=== PATIENT | female | born 1940 | race Caucasian/White ===

== ENCOUNTER 2017-09-01 11:28 | Emergency (ER) | payer MEDICARE ==
[~2017-09-01] VITALS: Ht 172.7 cm; Wt 54.5 kg
[~2017-09-01 11:28] MED LIST: ACTO35TA PO; AMLO5TAB96 PO; COUM5TAB PO; FEXO180 PO; GEMF600 PO; HYDR12.56 PO; LORT5TAB PO; METO100T PO; NIAC100T3 PO; OYST500T77 PO; PRAM.25 PO; PRIL20TA2 PO; REST15CA PO; TAB-TAB PO; WARF2.5 PO; ZOCO80TA PO
[2017-09-01 11:29] VITALS: BP 148/73; PULSE 97; RESP 20; TEMP 98.7; O2SAT 94
--- NOTE | 2017-09-01 12:15 | RADRPT ---
EXAM DATE/TIME: 09/01/2017 12:03 [facility] COMPARISON: No previous studies available for comparison. INDICATIONS : Fell yesterday, pain with limited motion. MEDICAL HISTORY : None. SURGICAL HISTORY : None. ENCOUNTER: Initial ACUITY: 2 days PAIN SCORE: 10/10 LOCATION: Right shoulder. FINDINGS: Fracture of the right humeral head surgical neck. The acromion and glenoid are intact. Lung apex is clear. CONCLUSION: Humeral fracture as above. Rubin Jasmine MD FACR on September 01, 2017 at 12:09 Board Certified Radiologist. This report was verified electronically.
--- NOTE | 2017-09-01 13:03 | RADRPT ---
EXAM DATE/TIME: 09/01/2017 12:38 [facility] COMPARISON: No previous studies available for comparison. INDICATIONS : Fall yesterday, cephalgia. RADIATION DOSE: 56.35 CTDIvol (mGy) MEDICAL HISTORY : Cardiovascular disease. Hypertension. SURGICAL HISTORY : Hysterectomy. ENCOUNTER: Initial ACUITY: 1 day PAIN SCALE: 2/10 LOCATION: Bilateral cranial TECHNIQUE: Multiple contiguous axial images were obtained of the head. Using automated exposure control and adj ustment of the mA and/or kV according to patient size, radiation dose was kept as low as reasonably a chievable to obtain optimal diagnostic quality images. DICOM format image data is available electro nically for review and comparison. FINDINGS: There is a remote left middle cerebral artery distribution infarct. Moderate to severe white matter i schemic changes. No acute hemorrhage, mass effect or shift. No hydrocephalus. Cortical volume loss. I ncidental basal ganglia calcifications. CONCLUSION: 1. Remote left MCA infarct. No acute findings. Lei Sanches MD on September 01, 2017 at 13:00 Board Certified Radiologist. This report was verified electronically.
--- NOTE | 2017-09-01 13:29 | PD ---
HPI Chief Complaint: Musculoskeletal Complaint Time Seen by Provider: 13:21 Travel History International Travel<30 days: No Contact w/Intl Traveler<30days: No Traveled to known affect area: No History of Present Illness HPI 76-year-old right-hand dominant female with PMH of HTN, A. fib ON COUMADIN presents to the ED for evaluation of 10/10 right shoulder pain. Onset after a slip and fall onto the concrete at approximately 8:30 PM last night. This was unwitnessed. She endorses hitting her head. She denies loss of consciousness. She denies headache, nausea, dizziness. She endorses limitations to range of motion of the arm secondary to pain but states that she has moved it. She denies numbness, tingling, weakness of the extremity. She never injured that area before. Last meal approximately 8 PM last night. She was seen a quick care, given 10 mg Percocet and told to come to the ED. PFSH Past Medical History Cancer: No Diabetes: No Glaucoma: No Hepatitis: No Hiatal Hernia: Yes Hypertension: Yes Thyroid Disease: No Past Surgical History Abdominal Surgery: Yes (RIGHT INGUINAL HERNIA REPAIR) Eye Surgery: Yes (BILAT CATARACT EXT) Gynecologic Surgery: Yes (HYSTERECTOMY) Pacemaker: No Social History Alcohol Use: Yes (1 OR 2 DAILY) Tobacco Use: Yes (1 PK DAILY) Allergies-Medications (Allergen,Severity, Reaction): Coded Allergies: No Known Allergies (Verified Adverse Reaction, Unknown, 09/01/17) Reported Meds & Prescriptions Reported Meds & Active Scripts Active Tramadol (Tramadol HCl) 50 Mg Tab 50 Mg PO Q8H PRN Reported Norvasc (Amlodipine Besylate) 5 Mg Tab 5 Mg PO BID Hydrochlorothiazide (Miscellaneous Medication) 12.5 Mg Cap 12.5 Mg PO DAILY Metoprolol Tartrate 100 mg (Metoprolol Tartrate) 100 Mg Tab 100 Mg PO BID Lortab 5/500 (Acetaminophen/Hydrocodone Bitart) 5 Mg/500 Mg Tab 1 Tab PO Q6HPRN FOR PAIN Restoril (Temazepam) 15 Mg Cap 15 Mg PO HSPRN FOR INSOMNIA Actonel 35 mg (Risedronate) 35 Mg Tab 35 Mg PO WEEKLY Zocor 80 mg (Simvastatin) 80 Mg Tab 80 Mg PO HS Coumadin (Warfarin Sodium) 2.5 Mg Tab 2.5 Mg PO TUES,THURS Coumadin 5 mg (Warfarin Sodium) 5 Mg Tab 5 Mg PO MON,WED,FRI,SAT,SUN Gloria (Fexofenadine HCl) 180 Mg Tab 180 Mg PO DAILY Mirapex (Pramipexole Dihydrochloride) 0.25 Mg Tab 0.25 Mg PO HS Prilosec Otc (Omeprazole Magnesium) 20 Mg Tab 20 Mg PO DAILY Lopid (Gemfibrozil) 600 Mg Tab 600 Mg PO BID Niacin 100 Mg Tab 250 Mg PO DAILY Multivitamin (Multivitamins) 1 Tab Tab 1 Tab PO DAILY Calcium 500 Mg Tab 500 Mg PO BID Review of Systems Except as stated in HPI: all other systems reviewed are Neg Physical Exam Narrative GENERAL: Well-nourished, well-developed frail white female in no acute distress. SKIN: Focused skin assessment warm/dry. HEAD: Normocephalic. EYES: No scleral icterus. No injection or drainage. NECK: Supple, trachea midline. No JVD or lymphadenopathy. No midline tenderness to palpation. No limitation to our OM. CARDIOVASCULAR: Regular rate and rhythm without murmurs, gallops, or rubs. RESPIRATORY: Breath sounds clear and equal bilaterally. No accessory muscle use. GASTROINTESTINAL: Abdomen soft, non-tender, nondistended. Active bowel sounds. MUSCULOSKELETAL: No cyanosis, or edema. FOCUSED RIGHT UPPER EXTREMITY EXAM: 2+ radial pulse. Thorough palpation of the shoulder and proximal humerus. Strong adapted physical education specialist strength. Sensation intact to light touch distally. Range of motion testing deferred secondary to pain. NEUROLOGICAL: Awake and alert. Cranial nerves II through XII intact. Motor and sensory grossly within normal limits. Five out of 5 muscle strength in all muscle groups. Normal speech. BACK: Nontender without obvious deformity. No CVA tenderness. Data Data Last Documented VS Vital Signs Date Time Temp Pulse Resp B/P (MAP) Pulse Ox O2 Delivery O2 Flow Rate FiO2 09/01/17 11:29 98.7 97 20 148/73 (98) 94 Room Air Orders Orders Ct Brain W/O Iv Contrast(Rout) (09/01/17 ) Shoulder, Limited(2vws) (09/01/17 ) Sling And Swathe (09/01/17 ) Sling And Swathe (09/01/17 ) NPO (09/01/17 13:21) Ed Discharge Order (09/01/17 15:33) [facility] Medical Decision Making Medical Screen Exam Complete: Yes Emergency Medical Condition: Yes Differential Diagnosis Fall from standing, contusion, ICH, fracture, dislocation , other Narrative Course 76-year-old female with PMH of Enrico moreno, on Coumadin presents to the ED for evaluation of 10/10 right shoulder pain. Onset at 8:30 last night after falling at home. She was seen on an outpatient basis and sent to the ED. She was given 2 Percocet at that time. Vitals reviewed. Physical exam concerning for proximal humerus fracture. Otherwise unremarkable. X-ray reveals fracture of the surgical neck. CT ordered in triage negative for intracranial pathology. I spoke with Dr. Castañeda who recommended sling and swath and outpatient follow-up. I discussed this plan of care with the patient who is agreeable. Sling and swath was applied. Patient was prescribed a short course of tramadol. She was given detailed instructions on follow-up. She indicated understanding of the instructions. Her son arrived to bring her home and he also indicated understanding of instructions. The patient is stable and discharged home. Diagnosis Primary Impression: Closed right humeral fracture Qualified Codes: S42.224A - 2-part nondisplaced fracture of surgical neck of right humerus, initial encounter for closed fracture Referrals: Mau Zavala MD Patient Instructions: Arm Fracture in Adults (ED), General Instructions Additional Instructions: Rest, ice, the extremity. Apply ice no longer than 10-15 minutes per hour a few times a day. Tramadol as prescribed, as needed for pain. Do not remove the sling until cleared by the orthopedist. Follow-up with Dr. Castañeda's office tomorrow for an appointment. Return to the ED for any urgent or emergent medical condition. Med/Other Pt SpecificInfo: Prescription(s) given Scripts Tramadol (Tramadol) 50 Mg Tab 50 MG PO Q8H Y for PAIN, #12 TAB 0 Refills Prov: Shelby Rankin MD 09/01/17 Disposition: 01 DISCHARGE HOME Condition: Stable Coco Zamora Sep 01, 2017 13:29
[2017-09-01] MEDS ORDERED: TRAM50TA PO (15:51)
[2017-09-02] MEDS ORDERED: DILT0.05 PO (10:36)
[2017-09-02] MEDS ORDERED: ATOR20TA15 PO (10:36)
[2017-09-02] MEDS ORDERED: WARF-58 PO (10:36)
[2017-09-02] MEDS ORDERED: WARF-20 PO (10:36)
[2017-09-02] MEDS ORDERED: ALEN35TA24 PO (10:36)
[2017-09-02] MEDS ORDERED: DONE5TAB7 PO (10:36)
[2017-09-02] MEDS ORDERED: METO25TA3 PO (10:38)
== END 2017-09-01 16:58 | disposition home or self-care (01) ==
LOC: NEPK 11:28
DX: S42.214A Unspecified nondisplaced fracture of surgical neck of right humerus, initial encounter for closed fracture (principal); I10 Essential (primary) hypertension; I48.91 Unspecified atrial fibrillation; W01.0XXA Fall on same level from slipping, tripping and stumbling without subsequent striking against object, initial encounter; Z72.89 Other problems related to lifestyle; Z79.01 Long term (current) use of anticoagulants
CPT/HCPCS: 70450; 73030; 99284

== ENCOUNTER 2017-09-01 18:34 | Observation (INO) | payer MEDICARE ==
[2017-09-01] VITALS (7 sets, daily range): BP systolic 124–148; BP diastolic 60–93; PULSE 75–84; RESP 18–20; TEMP 98–98.4; O2SAT 92–97
[~2017-09-01] VITALS: Ht 175.3 cm; Wt 50.0 kg
[~2017-09-01 18:34] MED LIST changes: +TRAM50TA PO
--- NOTE | 2017-09-01 18:52 | PD ---
HPI Chief Complaint: Fall Time Seen by Provider: 18:52 Travel History International Travel<30 days: No Contact w/Intl Traveler<30days: No Traveled to known affect area: No History of Present Illness HPI 76-year-old female seen previously today and discharged home status post fall last evening at 8:30 PM. Patient was diagnosed with a right humeral fracture. She was sent home with arm sling and tramadol for pain. Patient had recurrent unwitnessed fall at home where she lives with her and son. She is brought back via EMS. Patient complains of pain to the right shoulder only. She denies hitting her head or loss of consciousness. He denies pain in any other part. Pain is currently 8 out of 10. She has no known drug allergies. PFSH Past Medical History Hx Anticoagulant Therapy: Yes Cancer: No Cardiovascular Problems: Yes Diabetes: No Glaucoma: No Hepatitis: No Hiatal Hernia: Yes Hypertension: Yes Thyroid Disease: No Tetanus Vaccination: Unknown Influenza Vaccination: Yes Past Surgical History Abdominal Surgery: Yes (RIGHT INGUINAL HERNIA REPAIR) Eye Surgery: Yes (BILAT CATARACT EXT) Gynecologic Surgery: Yes (HYSTERECTOMY) Pacemaker: No Other Surgery: Yes Social History Alcohol Use: Yes (1 OR 2 DAILY) Tobacco Use: Yes (1 PK DAILY) Substance Use: No Allergies-Medications (Allergen,Severity, Reaction): Coded Allergies: No Known Allergies (Verified Adverse Reaction, Unknown, 09/01/17) Reported Meds & Prescriptions Reported Meds & Active Scripts Active Tramadol (Tramadol HCl) 50 Mg Tab 50 Mg PO Q8H PRN Review of Systems Except as stated in HPI: all other systems reviewed are Neg General / Constitutional: No: Fever Eyes: No: Visual changes HENT: No: Headaches Cardiovascular: No: Chest Pain or Discomfort Respiratory: No: Shortness of Breath Gastrointestinal: No: Abdominal Pain Genitourinary: No: Dysuria Musculoskeletal: Positive: Arthralgias, Limited ROM, Pain, No: Myalgias Skin: No Rash Neurologic: No: Weakness Psychiatric: No: Depression Endocrine: No: Polydipsia Hematologic/Lymphatic: No: Easy Bruising Physical Exam Narrative GENERAL: Patient appears in [id number] distress. SKIN: Warm and dry. Normal color. Normal turgor. Patient has multiple superficial abrasions and old ecchymotic areas. HEAD: Atraumatic. Normocephalic. Nontender with palpation. EYES: Pupils equal and round. No scleral icterus. No injection or drainage. ENT: No nasal bleeding or discharge. Mucous membranes pink and moist. No dental injury. Pharynx is clear. Airway is patent. NECK: Trachea midline. No bony tenderness or step-off. Range of motion is full. CARDIOVASCULAR: Regular rate and rhythm. No murmurs appreciated. RESPIRATORY: No accessory muscle use. Clear to auscultation. Breath sounds equal bilaterally. GASTROINTESTINAL: Abdomen soft, non-tender, nondistended. Hepatic and splenic margins not palpable. MUSCULOSKELETAL: Extremities without clubbing, cyanosis, or edema. She has obvious swelling and tenderness over the right shoulder. NEUROLOGICAL: Awake and alert. No obvious cranial nerve deficits. Motor grossly within normal limits. Five out of 5 muscle strength in the arms and legs. Normal speech. PSYCHIATRIC: Appropriate mood and affect; insight and judgment normal. Data Data Last Documented VS Vital Signs Date Time Temp Pulse Resp B/P (MAP) Pulse Ox O2 Delivery O2 Flow Rate FiO2 09/01/17 19:20 82 18 124/60 (81) 95 Nasal Cannula 2.00 09/01/17 18:48 98.4 Orders Orders Iv Access Insert/Monitor (09/01/17 19:02) Ecg Monitoring (09/01/17 19:02) Oximetry (09/01/17 19:02) Sodium Chloride 0.9% Flush (Ns Flush) (09/01/17 19:15) Morphine Inj (Morphine Inj) (09/01/17 19:15) Admit Order (Ed Use Only) (09/01/17 20:30) [facility] Medical Decision Making Medical Screen Exam Complete: Yes Emergency Medical Condition: Yes Medical Record Reviewed: Yes Differential Diagnosis Unwitnessed fall. Right shoulder fracture. Fall risk. Unsafe for home discharge Narrative Course Patient appears medically stable at time of exam. IV is placed, and patient is given 2 mg IV morphine. Patient is seen and discussed with Dr. Almendarez. Patient is felt to warrant overnight observation and physical therapy evaluation. Call was placed to the hospitalist for admission. Diagnosis Primary Impression: Shoulder fracture, right Qualified Codes: S42.91XD - Fracture of right shoulder girdle, part unspecified, subsequent encounter for fracture with routine healing Additional Impressions: Recurrent falls while walking Anticoagulated on Coumadin Admitting Information Admitting Physician Requests: Observation Condition: Stable Vinny Brown Sep 01, 2017 18:52
[2017-09-01] MEDS ORDERED: SODIUM CHLORIDE 0.9% FLUSH 10 ML FLUSH IV FLUSH PRN (19:15)
[2017-09-01] MEDS ORDERED: MORPHINE SULFATE 2 MG/ML INJ IV PUSH ONE (19:15)
--- NOTE | 2017-09-01 20:44 | HHI.HP ---
HPI Service [facility] Hospitalists Primary Care Physician Unknown Admission Diagnosis right humerus fracture/recurrent falls/fall risk/on Coumadin Chief Complaint: falls Travel History International Travel<30 Days: No Contact w/Intl Traveler <30 Da: No Traveled to Known Affected Are: No History of Present Illness Pt is 76 yo with afib/coumadin, dementia, htn who fell out of bed this morning. Pt was taken to pcp and had given her some percocet. noted to have right humerus head fx. Pt then brought to ED and placed in sling and order to f/u Ortho..ultram writted. Pt went home and reportedly had another fall and brought here by EMS. Unable to reach family. Pt unclear about the second fall and ED requested observation. Pt denies headache. Review of Systems Other falls right arm fx Past Family Social History Past Medical History afib depression pvd sz d/o gerd diverticulosis colon polyps hx cva hx dvt dementia spinal stenosis/neurogenic claudication per records htn RLS hx cataract surgery hysterectomy hernia repair Reported Medications coumadin mirtazepine 15mg qhs metoprolol 25mg po bid aricept 5mg bid cardizem 180mg daily atorvastatin 20mg daily alendronate 3 daily but 4mg on weekend Allergies: Coded Allergies: No Known Allergies (Verified Adverse Reaction, Unknown, 09/01/17) Family History nc Social History no etoh/1ppd tob Physical Exam Vital Signs nad cooperative heart reg lung cta abd s/nt ext no edema right arm sling/ecchymosis Vital Signs Date Time Temp Pulse Resp B/P (MAP) Pulse Ox O2 Delivery O2 Flow Rate FiO2 09/01/17 19:20 82 18 124/60 (81) 95 Nasal Cannula 2.00 09/01/17 19:19 95 Room Air 09/01/17 18:48 84 19 95 Room Air 09/01/17 18:48 98.4 84 19 133/61 (85) 95 Room Air 09/01/17 18:43 98.4 84 19 133/61 (85) 95 Caprini VTE Risk Assessment Caprini VTE Risk Assessment: Mod/High Risk (score >= 2) Caprini Risk Assessment Model Point Value = 1 Point Value = 2 Point Value = 3 Point Value = 5 Age 41-60 Minor surgery BMI > 25 kg/m2 Swollen legs Varicose veins or History of unexplained or recurrent spontaneous Oral contraceptives or hormone replacement Sepsis (< 1 month) Serious lung disease, including pneumonia (< 1 month) Abnormal pulmonary function Acute myocardial infarction Congestive heart failure (< 1 month) History of inflammatory bowel disease Medical patient at bed rest Age 61-74 Arthroscopic surgery Major open surgery (> 45 min) Laparoscopic surgery (> 45 min) Malignancy Confined to bed (> 72 hours) Immobilizing plaster cast Central venous access Age >= 75 History of VTE Family history of VTE Factor V Leiden Prothrombin [id number] Lupus anticoagulant Anticardiolipin antibodies Elevated serum homocysteine Heparin-induced thrombocytopenia Other congenital or acquired thrombophilia Stroke (< 1 month) Elective arthroplasty Hip, pelvis, or leg fracture Acute spinal cord injury (< 1 month) Prophylaxis Regimen Total Risk Factor Score Risk Level Prophylaxis Regimen 0-1 Low Early ambulation 2 Moderate Order ONE of the following: *Sequential Compression Device (SCD) *Heparin 5000 units SQ BID 3-4 Higher Order ONE of the following medications: *Heparin 5000 units SQ TID *Enoxaparin/Lovenox 40 mg SQ daily (WT < 150 kg, CrCl > 30 mL/min) *Enoxaparin/Lovenox 30 mg SQ daily (WT < 150 kg, CrCl > 10-29 mL/min) *Enoxaparin/Lovenox 30 mg SQ BID (WT < 150 kg, CrCl > 30 mL/min) AND/OR *Sequential Compression Device (SCD) 5 or more Highest Order ONE of the following medications: *Heparin 5000 units SQ TID (Preferred with Epidurals) *Enoxaparin/Lovenox 40 mg SQ daily (WT < 150 kg, CrCl > 30 mL/min) *Enoxaparin/Lovenox 30 mg SQ daily (WT < 150 kg, CrCl > 10-29 mL/min) *Enoxaparin/Lovenox 30 mg SQ BID (WT < 150 kg, CrCl > 30 mL/min) AND *Sequential Compression Device (SCD) Assessment and Plan Problem List: (1) Shoulder fracture, right ICD Codes: S42.91XA - Fracture of right shoulder girdle, part unspecified, initial encounter for closed fracture Status: Acute Plan: 1. Fall x 2 today. unclear mechanism. poor historian. dementia. no family present 2. right humerus fracture evaluated in ED this AM and sent home with ortho f/u 3. afib on anticoagulation. inr on 08/30 2.7 per office records 4. htn 5. dementia observation PT evaluation cbc/bmp/inr pending pain control try to contact family decide on home vs snf tomorrow. I found a list of medications in [facility] pharmacy record. (2) Recurrent falls ICD Codes: R29.6 - Repeated falls Status: Acute (3) Dementia ICD Codes: F03.90 - Unspecified dementia without behavioral disturbance Status: Chronic (4) HTN (hypertension) ICD Codes: I10 - Essential (primary) hypertension Status: Chronic (5) Atrial fibrillation ICD Codes: I48.91 - Unspecified atrial fibrillation Status: Chronic Problem Qualifiers (1) Shoulder fracture, right: Qualified Codes: S42.91XD - Fracture of right shoulder girdle, part unspecified , subsequent encounter for fracture with routine healing Tello Bills MD Sep 01, 2017 20:44
[2017-09-01 21:10] LABS: AUTOMATED NEUTROPHIL # 10.1 TH/MM3 (1.8-7.7); BASOPHIL # 0.1 TH/MM3 (0-0.2); BASOPHIL % 0.5 % (0.0-2.0); EOSINOPHIL % 0.2 % (0.0-4.0); HEMATOCRIT 40.9 % (35.0-46.0); HEMOGLOBIN 13.9 GM/DL (11.6-15.3); LYMPH % 8.4 % (9.0-44.0); MEAN CELL VOLUME 90.9 FL (80.0-100.0); MEAN CORPUSCULAR HEMOGLOBIN 30.8 PG (27.0-34.0); MEAN CORPUSCULAR HGB CONC 33.9 % (32.0-36.0); MEAN PLATELET VOLUME 8.8 FL (7.0-11.0); MONO % 6.9 % (0.0-8.0); MONOCYTE # 0.8 TH/MM3 (0-0.9); PLATELET COUNT 236 TH/MM3 (150-450); RED CELL DISTRIBUTION WIDTH 13.5 % (11.6-17.2); WHITE BLOOD COUNT 12.1 TH/MM3 (4.0-11.0)
[2017-09-01 21:30] LABS: BICARBONATE 24.1 MEQ/L (21.0-32.0); CALCIUM 8.6 MG/DL (8.5-10.1); CREATININE 0.87 MG/DL (0.50-1.00)
[2017-09-01 21:31] LABS: TROPONIN I 0.04 NG/ML (0.02-0.05)
[2017-09-01 21:38] LABS: INTERNATIONAL NORMALIZED RATIO 3.1 RATIO; PROTHROMBIN TIME - PATIENT 31.1 SEC (9.8-11.6)
[2017-09-01] MEDS ORDERED: traMADol HCL 50 MG TAB PO PRN (22:00)
[2017-09-02 00:42] VITALS: PULSE 72
[2017-09-02 03:15] VITALS: BP 145/65; PULSE 75; RESP 18; TEMP 98.1; O2SAT 94
[2017-09-02 04:37] VITALS: PULSE 71
[2017-09-02] MEDS ORDERED: METOPROLOL TARTRATE 25 MG TAB PO SCH (09:00)
[2017-09-02] MEDS ORDERED: DILTIAZEM-CD 180 MG CAP ER PO SCH (09:00)
[2017-09-02] MEDS ORDERED: DONEPEZIL HCL 5 MG TAB PO SCH (09:00)
[2017-09-02 09:11] VITALS: BP 153/68; PULSE 78; RESP 15; TEMP 97.1; O2SAT 93
[2017-09-02] MEDS ORDERED: ATOR20TA15 PO (10:36)
[2017-09-02] MEDS ORDERED: DONE5TAB7 PO (10:36)
[2017-09-02] MEDS ORDERED: WARF-58 PO (10:36)
[2017-09-02] MEDS ORDERED: DILT0.05 PO (10:36)
[2017-09-02] MEDS ORDERED: ALEN35TA24 PO (10:36)
[2017-09-02] MEDS ORDERED: WARF-20 PO (10:36)
[2017-09-02] MEDS ORDERED: METO25TA3 PO (10:38)
--- NOTE | 2017-09-02 10:43 | HHI.PR ---
Subjective Remarks Pt is awake and pleasantly confused Nurse reports that PT saw the pt this morning and recommended home with HHC/PT ans felt that the pt was stable to use a cane Pt reportedly lives at home with her and son I was unable to reach any family members this morning by phone and no family is present at bedside Pt reports that her pain is well controlled Objective Vitals Vital Signs Date Time Temp Pulse Resp B/P (MAP) Pulse Ox O2 Delivery O2 Flow Rate FiO2 09/02/17 09:11 97.1 78 15 153/68 (96) 93 09/02/17 04:37 71 09/02/17 03:15 98.1 75 18 145/65 (91) 94 09/02/17 00:42 72 09/01/17 23:29 98.0 75 18 145/93 (110) 92 09/01/17 21:50 98.0 76 18 148/65 (92) 93 09/01/17 20:57 76 20 147/68 (94) 97 Nasal Cannula 2.00 09/01/17 19:20 82 18 124/60 (81) 95 Nasal Cannula 2.00 09/01/17 19:19 95 Room Air 09/01/17 18:48 84 19 95 Room Air 09/01/17 18:48 98.4 84 19 133/61 (85) 95 Room Air 09/01/17 18:43 98.4 84 19 133/61 (85) 95 Result Diagram: 09/01/17203609/01/172036 Other Results Laboratory Tests Test 09/01/17 20:37 White Blood Count 12.1 TH/MM3 Red Blood Count 4.50 MIL/MM3 Hemoglobin 13.9 GM/DL Hematocrit 40.9 % Mean Corpuscular Volume 90.9 FL Mean Corpuscular Hemoglobin 30.8 PG Mean Corpuscular Hemoglobin Concent 33.9 % Red Cell Distribution Width 13.5 % Platelet Count 236 TH/MM3 Mean Platelet Volume 8.8 FL Neutrophils (%) (Auto) 84.0 % Lymphocytes (%) (Auto) 8.4 % Monocytes (%) (Auto) 6.9 % Eosinophils (%) (Auto) 0.2 % Basophils (%) (Auto) 0.5 % Neutrophils # (Auto) 10.1 TH/MM3 Lymphocytes # (Auto) 1.0 TH/MM3 Monocytes # (Auto) 0.8 TH/MM3 Eosinophils # (Auto) 0.0 TH/MM3 Basophils # (Auto) 0.1 TH/MM3 CBC Comment DIFF FINAL Differential Comment Prothrombin Time 31.1 SEC Prothromb Time International Ratio 3.1 RATIO Blood Urea Nitrogen 23 MG/DL Creatinine 0.87 MG/DL Random Glucose 111 MG/DL Calcium Level 8.6 MG/DL Sodium Level 135 MEQ/L Potassium Level 4.2 MEQ/L Chloride Level 103 MEQ/L Carbon Dioxide Level 24.1 MEQ/L Anion Gap 8 MEQ/L Estimat Glomerular Filtration Rate 63 ML/MIN Troponin I 0.04 NG/ML Objective Remarks General: Awake, alert, pleasantly confused Chest: CTA Cardiac: Regular Abdomen: +BS, soft ND/NT Ext: RUE in sling A/P Problem List: (1) Shoulder fracture, right ICD Codes: S42.91XA - Fracture of right shoulder girdle, part unspecified, initial encounter for closed fracture Status: Acute Plan: Falls at home Right humerus fracture - Pt is a 76 y/o WF with HTN, A. fib and dementia - She was brought into the ED twice on 09/01/16 both times after falls at home. - With her first evaluation in the ED she was found to have sustained a right humerus fracture and was placed in a sling and sent home to fu with ortho - Pt reportedly fell again yesterday evening and was brought back into the ED. The mechanism of her fall is unclear - PT evaluated the pt this morning and felt to the stable to go home with HHC /PT but unable to contact pts family by phone to discuss this - Pain controlled with Ultram - Plan for d/c with [facility] once CM or nursing can reach the pts family. Nurse reports several attempts have been made to contact the pts family with no response. - Pt will need to followup with Dr. Castañeda's group, appt was made at ER visit on 09/01 for today but [place] was still [place] [facility] so this will need to be rescheduled. Requested help from CM to reschedule appt for the pt for tomorrow or Wednesday at the latest. - She will need to followup with her PCP, Dr. Ham, in 1 week as well. A. fib on anticoagulation. - INR on 08/30 2.7 per office records and repeat on 09/01 is 3.1 - Coumadin to be resumed at discharge - BB and CCB resumed - Telemetry with NSR in the 70-80's HTN - Home meds resumed - Stable Dementia - Stable (2) Recurrent falls ICD Codes: R29.6 - Repeated falls Status: Acute (3) Dementia ICD Codes: F03.90 - Unspecified dementia without behavioral disturbance Status: Chronic (4) HTN (hypertension) ICD Codes: I10 - Essential (primary) hypertension Status: Chronic (5) Atrial fibrillation ICD Codes: I48.91 - Unspecified atrial fibrillation Status: Chronic Assessment and Plan Patient examined. Assessment and plan formulated with Kailee Lobo PA-C. I agree with the above. pt stable to d/c home per PT. unable to reach family. d/c orders written. Problem Qualifiers (1) Shoulder fracture, right: Qualified Codes: S42.91XD - Fracture of right shoulder girdle, part unspecified , subsequent encounter for fracture with routine healing Kailee Lobo Sep 02, 2017 10:43 Tello Bills MD Sep 02, 2017 14:31
--- NOTE | 2017-09-02 10:44 | HHI.FF ---
Face to Face Verification Diagnosis: (1) Shoulder fracture, right (2) Anticoagulated on Coumadin (3) Recurrent falls while walking (4) Atrial fibrillation (5) Dementia (6) HTN (hypertension) Physical Therapy Order: Evaluate and Treat, Improve ambulation, Strength and gait training Home Health Nursing Order: Medical education Nursing assessment with vital signs I have seen patient Ermelinda Arredondo on 09/02/17. My clinical findings support the need for the requested home health care services because: Deconditioned w/ increased weakness Limited ability to care for self Impaired cognition/judgement High risk of falls I certify that my clinical findings support that this patient is homebound because: Impaired cognitive ability/safety Unsteady gait/balance Kailee Lobo Sep 02, 2017 10:44
[2017-09-02 13:32] VITALS: BP 122/51; PULSE 75; RESP 20; TEMP 96.9; O2SAT 91
[2017-09-02 15:28] VITALS: BP 101/51; PULSE 71; RESP 18; TEMP 97.4; O2SAT 92
== END 2017-09-02 16:57 | disposition home or self-care (01) ==
LOC: NEPC 18:34 → NEDA 20:32 → NEPHCDU 21:24
PROVIDERS: ADMIT Hospitalist; ATTEND Hospitalist
DX: S42.291A Other displaced fracture of upper end of right humerus, initial encounter for closed fracture (principal); I48.91 Unspecified atrial fibrillation; I10 Essential (primary) hypertension; F03.90 Unspecified dementia, unspecified severity, without behavioral disturbance, psychotic disturbance, mood disturbance, and anxiety; R29.6 Repeated falls; F32.9 Major depressive disorder, single episode, unspecified; I73.9 Peripheral vascular disease, unspecified; K21.9 Gastro-esophageal reflux disease without esophagitis; G25.81 Restless legs syndrome; M48.00 Spinal stenosis, site unspecified; M25.511 Pain in right shoulder; F17.200 Nicotine dependence, unspecified, uncomplicated; Z86.718 Personal history of other venous thrombosis and embolism; Z86.73 Personal history of transient ischemic attack (TIA), and cerebral infarction without residual deficits; Z79.899 Other long term (current) drug therapy; Z79.01 Long term (current) use of anticoagulants; W06.XXXA Fall from bed, initial encounter; Y92.009 Unspecified place in unspecified non-institutional (private) residence as the place of occurrence of the external cause
CPT/HCPCS: 80048; 84484; 85025; 85610; 96374; 97162; 99285; G0378; G8987; G8988; J2270

== ENCOUNTER 2017-09-21 18:38 | Inpatient (IN) | payer MEDICARE, OTHER ==
[~2017-09-21] VITALS: Ht 165.1 cm; Wt 60.0 kg
[~2017-09-21 18:38] MED LIST changes: -ACTO35TA PO; +ALEN35TA24 PO; -AMLO5TAB96 PO; +ATOR20TA15 PO; -COUM5TAB PO; +DILT0.05 PO; +DONE5TAB7 PO; -FEXO180 PO; -GEMF600 PO; -HYDR12.56 PO; -LORT5TAB PO; -METO100T PO; +METO25TA3 PO; -NIAC100T3 PO; -OYST500T77 PO; -PRAM.25 PO; -PRIL20TA2 PO; -REST15CA PO; -TAB-TAB PO; +WARF-20 PO; +WARF-58 PO; -WARF2.5 PO; -ZOCO80TA PO
[2017-09-21 18:53] VITALS: BP 134/60; PULSE 83; RESP 17; TEMP 98.3; O2SAT 96
[2017-09-21 18:55] VITALS: BP 134/60; PULSE 83; RESP 17; TEMP 98.3; O2SAT 96
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
--- NOTE | 2017-09-21 19:23 | RADRPT ---
EXAM DATE/TIME: 09/21/2017 19:12 [facility] COMPARISON: No previous studies available for comparison. INDICATIONS : Short of breath. MEDICAL HISTORY : None. SURGICAL HISTORY : None. ENCOUNTER: Initial ACUITY: 1 day PAIN SCORE: Non-responsive. LOCATION: Bilateral chest FINDINGS: Discoid atelectasis and/or scarring is noted within the left lung base. Right lung is clear. The hear t is normal. Multiple probable old fractures involving the seventh, eighth and ninth ribs posteriorly are noted. CONCLUSION: Left basilar discoid atelectasis and/or scarring. Bernardo Mcghee MD on September 21, 2017 at 19:19 Board Certified Radiologist. This report was verified electronically.
[2017-09-21 19:33] LABS: AUTOMATED NEUTROPHIL # 6.8 TH/MM3 (1.8-7.7); BASOPHIL # 0.1 TH/MM3 (0-0.2); BASOPHIL % 0.6 % (0.0-2.0); EOSINOPHIL # 0.2 TH/MM3 (0-0.4); EOSINOPHIL % 1.9 % (0.0-4.0); HEMATOCRIT 39.4 % (35.0-46.0); HEMOGLOBIN 13.6 GM/DL (11.6-15.3); LYMPH % 24.6 % (9.0-44.0); LYMPHOCYTE # 2.5 TH/MM3 (1.0-4.8); MEAN CELL VOLUME 89.9 FL (80.0-100.0); MEAN CORPUSCULAR HEMOGLOBIN 31.1 PG (27.0-34.0); MEAN CORPUSCULAR HGB CONC 34.6 % (32.0-36.0); MEAN PLATELET VOLUME 8.5 FL (7.0-11.0); MONOCYTE # 0.7 TH/MM3 (0-0.9); NEUT % 65.9 % (16.0-70.0); PLATELET COUNT 457 TH/MM3 (150-450); RED BLOOD COUNT 4.39 MIL/MM3 (4.00-5.30); RED CELL DISTRIBUTION WIDTH 13.9 % (11.6-17.2); WHITE BLOOD COUNT 10.4 TH/MM3 (4.0-11.0)
[2017-09-21 19:50] LABS: ALT (GPT) 16 U/L (10-53)
[2017-09-21 19:51] LABS: ALBUMIN 2.9 GM/DL (3.4-5.0); AST (GOT) 27 U/L (15-37); BICARBONATE 23.6 MEQ/L (21.0-32.0); BLOOD UREA NITROGEN 17 MG/DL (7-18); CHLORIDE 105 MEQ/L (98-107); CREATININE 0.77 MG/DL (0.50-1.00); GLOMERULAR FILTRATION RATE 73 ML/MIN (>89); GLUCOSE,RANDOM 96 MG/DL (74-106); SODIUM (NA) 138 MEQ/L (136-145)
[2017-09-21 20:00] LABS: ACETAMINOPHEN LESS THAN 2.0 MCG/ML (10.0-30.0); ALKALINE PHOSPHATASE 137 U/L (45-117); TOTAL BILIRUBIN ADULT 0.5 MG/DL (0.2-1.0); TOTAL PROTEIN 6.3 GM/DL (6.4-8.2)
--- NOTE | 2017-09-21 20:00 | RADRPT ---
EXAM DATE/TIME: 09/21/2017 19:35 [facility] COMPARISON: CT BRAIN W/O CONTRAST, September 01, 2017, 12:38. INDICATIONS : Altered mental status. RADIATION DOSE: 56.35 CTDIvol (mGy) MEDICAL HISTORY : Hypertension. Cardiovascular disease SURGICAL HISTORY : None. ENCOUNTER: Initial ACUITY: 1 day PAIN SCALE: 0/10 LOCATION: cranial TECHNIQUE: Multiple contiguous axial images were obtained of the head. Using automated exposure control and adj ustment of the mA and/or kV according to patient size, radiation dose was kept as low as reasonably a chievable to obtain optimal diagnostic quality images. DICOM format image data is available electro nically for review and comparison. FINDINGS: Extensive old left middle cerebral artery distribution infarction is again noted with encephalomalaci a throughout the left frontal parietal and temporal lobes as well as ex vacuo dilatation of the left lateral ventricle. Moderate to severe diffuse periventricular and subcortical white matter small vess el ischemic changes are noted bilaterally. No acute hemorrhage, mass effect and or extra-axial fluid collections are noted. Diffuse cerebral atrophy is stable. Mild mucosal thickening is noted within th e left sphenoid sinus. CONCLUSION: 1. 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 2. Moderate to severe diffuse periventricular and subcortical white matter small vessel ischemic ng ges bilaterally. 3. No acute hemorrhage, mass effect or extra axial fluid collections. 4. Diffuse cerebral atrophy. 5. Mild mucosal thickening involving the left sphenoid sinus. Bernardo Mcghee MD on September 21, 2017 at 19:52 Board Certified Radiologist. This report was verified electronically.
[2017-09-21] MEDS ORDERED: PROPOFOL 500 MG/50 ML INJ 50 ML ONE (21:48)
[2017-09-21 21:55] LABS: BILIRUBIN, URINE NEG (NEG); BLOOD, URINE NEG (NEG); GLUCOSE,URINE NEG (NEG); KETONE, URINE TRACE mg/dL (NEG); MUCUS URINE FEW /lpf (OCC); NITRITE,URINE NEG (NEG); PH, URINE 7.5 (5.0-8.5); URINE COLOR YELLOW (YELLW/STRAW); URINE LEUKOCYTE ESTERASE MOD (NEG)
[2017-09-22] MEDS ORDERED: MIRTA15 PO (05:24)
[2017-09-22] MEDS ORDERED: ALENDRONATE 35 MG PO SCH (06:00)
[2017-09-22] MEDS ORDERED: ALUMINUM/MAGNESIUM/SIMETH 30 ML CUP PO PRN (06:00)
[2017-09-22] MEDS ORDERED: MAGNESIUM HYDROXIDE SUSP 30 ML CUP PO PRN (06:00)
[2017-09-22] MEDS ORDERED: WARFARIN SOD 3 MG TAB PO SCH (06:00)
[2017-09-22] MEDS ORDERED: BENZTROPINE MESYLATE 2 MG/2 ML VIAL IM PRN (06:00)
[2017-09-22] MEDS ORDERED: NICOTINE 21 MG/24 HR PATCH T-DERMAL PRN (06:00)
[2017-09-22] MEDS ORDERED: BENZTROPINE MESYLATE 1 MG TAB PO PRN (06:00)
[2017-09-22 07:00] VITALS: BP 150/84; PULSE 87; RESP 16; TEMP 97.6; O2SAT 97
--- NOTE | 2017-09-22 08:40 | PD.CONS ---
HPI Service [facility] Hospitalists Consult Requested By Psychiatric team Reason for Consult Management of chronic medical conditions Primary Care Physician Unknown Diagnoses: History of Present Illness This is a 77 yo female with afib/coumadin, dementia, htn. Patient currently in inpatient psychiatric center under [facility] after suicide attempt. Patient unable to provide information regarding medical history or medications. Information gathered from prior computerized charting and review of outpatient records. Patient appears to be in no acute distress. Patient has had recent falls earlier this month with right humerus fracture. Patient denies pain. Offers no complaints at this time. Review of Systems ROS Limitations: Clinical Condition, Poor Historian Past Family Social History Past Medical History afib depression pvd sz d/o gerd diverticulosis colon polyps hx cva hx dvt dementia spinal stenosis/neurogenic claudication per records htn RLS Past Surgical History hx cataract surgery hysterectomy hernia repair Reported Medications Mirtazapine 15 Mg Tab 15 Mg PO HS Metoprolol Tartrate 25 Mg Tab 25 Mg PO BID Warfarin 4 Mg Tab 4 Mg PO SUSA Take 1 tablet (4mg) on Wednesday and Wednesday Warfarin 3 Mg Tab 3 Mg PO MOTUWETHFR Take 1 tablet (3mg) daily Wednesday thru Wednesday Atorvastatin (Atorvastatin Calcium) 20 Mg Tab 20 Mg PO HS Alendronate (Alendronate Sodium) 35 Mg Tab 35 Mg PO WEEKLY Diltiazem ER 24 HR 180 Mg Ebenezer 180 Mg PO DAILY Donepezil 5 Mg Tab 5 Mg PO BID Allergies: Coded Allergies: No Known Allergies (Verified Adverse Reaction, Unknown, 09/21/17) Active Ordered Medications Current Medications Medications (Trade) Dose Ordered Sig/Omar Route Start Time Stop Time Status Last Admin (Tylenol) 650 mg Q4H PRN PO 09/22/17 06:00 (Milk Of Magnesia Liq) 30 ml DAILY PRN PO 09/22/17 06:00 (Mag-Al Plus Susp Liq) 30 ml Q6H PRN PO 09/22/17 06:00 (Habitrol 21 Mg Patch.24 Hr) 1 patch DAILY PRN T-DERMAL 09/22/17 06:00 (Cogentin) 0.5 mg Q12H PRN PO 09/22/17 06:00 (Cogentin Inj) 0.5 mg Q12H PRN IM 09/22/17 06:00 (Lipitor) 20 mg HS PO 09/22/17 21:00 (Cardizem Cd) 180 mg DAILY PO 09/22/17 09:00 (Aricept) 5 mg BID PO 09/22/17 09:00 (Lopressor) 25 mg BID PO 09/22/17 09:00 (Coumadin) 3 mg MoTuWeThFr PO 09/22/17 06:00 UNV (Coumadin) 4 mg SuSa PO 09/25/17 06:00 UNV Family History Noncontributory Social History no etoh/1ppd tob Physical Exam Vital Signs Vital Signs Date Time Temp Pulse Resp B/P (MAP) Pulse Ox O2 Delivery O2 Flow Rate FiO2 09/22/17 08:01 09/22/17 07:00 97.6 87 16 150/84 (106) 97 Room Air 09/21/17 18:59 83 17 09/21/17 18:55 98.3 83 17 134/60 (84) 96 Room Air 09/21/17 18:53 98.3 83 17 134/60 (84) 96 Physical Exam GENERAL: This is a well-nourished, well-developed patient, confused but un no acute distress SKIN: Healing scratch bilateral thighs HEAD: Atraumatic. Normocephalic. No temporal or scalp tenderness. EYES: Extraocular motions intact. No scleral icterus. No injection or drainage. CARDIOVASCULAR: Regular rate and rhythm RESPIRATORY: Clear to auscultation. Breath sounds equal bilaterally. GASTROINTESTINAL: Abdomen soft, non-tender, nondistended. MUSCULOSKELETAL: Extremities without clubbing, cyanosis, or edema. No joint tenderness, effusion, or edema noted. No calf tenderness. Negative Homans sign bilaterally. NEUROLOGICAL: Sleepy but able to awake to voice. Unable to provide specific details to medical history. No focal deficits. Motor and sensory grossly within normal limits. 4 out of 5 muscle strength in all muscle groups. Laboratory Laboratory Tests Test 09/21/17 19:18 09/21/17 21:41 White Blood Count 10.4 Red Blood Count 4.39 Hemoglobin 13.6 Hematocrit 39.4 Mean Corpuscular Volume 89.9 Mean Corpuscular Hemoglobin 31.1 Mean Corpuscular Hemoglobin Concent 34.6 Red Cell Distribution Width 13.9 Platelet Count 457 Mean Platelet Volume 8.5 Neutrophils (%) (Auto) 65.9 Lymphocytes (%) (Auto) 24.6 Monocytes (%) (Auto) 7.0 Eosinophils (%) (Auto) 1.9 Basophils (%) (Auto) 0.6 Neutrophils # (Auto) 6.8 Lymphocytes # (Auto) 2.5 Monocytes # (Auto) 0.7 Eosinophils # (Auto) 0.2 Basophils # (Auto) 0.1 CBC Comment DIFF FINAL Differential Comment Blood Urea Nitrogen 17 Creatinine 0.77 Random Glucose 96 Total Protein 6.3 Albumin 2.9 Calcium Level 9.0 Alkaline Phosphatase 137 Aspartate Amino Transf (AST/SGOT) 27 Alanine Aminotransferase (ALT/SGPT) 16 Total Bilirubin 0.5 Sodium Level 138 Potassium Level 4.0 Chloride Level 105 Carbon Dioxide Level 23.6 Anion Gap 9 Estimat Glomerular Filtration Rate 73 Thyroid Stimulating Hormone 3rd Gen 2.160 Salicylates Level 4.3 Acetaminophen Level LESS THAN 2.0 Ethyl Alcohol Level LESS THAN 3 Urine Color YELLOW Urine Turbidity CLEAR Urine pH 7.5 Urine Specific [place] 1.011 Urine Protein TRACE Urine Glucose (UA) NEG Urine Ketones TRACE Urine Occult Blood NEG Urine Nitrite NEG Urine Bilirubin NEG Urine Urobilinogen LESS THAN 2.0 Urine Leukocyte Esterase MOD Urine RBC 1 Urine WBC 7 Urine Mucus FEW Microscopic Urinalysis Comment CULT NOT INDICATED Urine Opiates Screen NEG Urine Barbiturates Screen NEG Urine Amphetamines Screen NEG Urine Benzodiazepines Screen NEG Urine Cocaine Screen NEG Urine Cannabinoids Screen NEG Result Diagram: 09/21/178 09/21/171917 Imaging Last Impressions Head CT 09/21/17 0000 Signed Impressions: Service Date/Time: Thursday, September 21, 2017 19:35 - CONCLUSION: 1. 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 2. Moderate to severe diffuse periventricular and subcortical white matter small vessel ischemic changes bilaterally. 3. No acute hemorrhage, mass effect or extra axial fluid collections. 4. Diffuse cerebral atrophy. 5. Mild mucosal thickening involving the left sphenoid sinus. Bernardo Mcghee MD Chest X-Ray 09/21/17 0000 Signed Impressions: Service Date/Time: Thursday, September 21, 2017 19:12 - CONCLUSION: Left basilar discoid atelectasis and/or scarring. Bernardo Mcghee MD Assessment and Plan Problem List: (1) Suicide attempt ICD Codes: T14.91XA - Suicide attempt, initial encounter Plan: Suicide attempt Patient is currently inpatient psychiatric center under [facility] act further management per psychiatric team (2) HTN (hypertension) ICD Codes: I10 - Essential (primary) hypertension Status: Chronic Plan: HTN Chronic continue patient's home Cardizem and metoprolol (3) Dementia ICD Codes: F03.90 - Unspecified dementia without behavioral disturbance Status: Chronic Plan: Dementia Chronic continue patient's home Aricept 5 mg by mouth twice a day (4) Atrial fibrillation ICD Codes: I48.91 - Unspecified atrial fibrillation Status: Chronic Plan: Atrial fibrillation on anticoagulation. INR on 09/01 was 3.1 recheck INR Chronic continue Metoprolol and Cardizem 180 mg daily for rate control Recommend stopping Coumadin due to patient's high fall risk. Patient has had several recent falls coupled with her dementia puts patient a high risk and not safe to take Coumadin. Consult physical therapy regarding patient's recurrent falls (5) Shoulder pain ICD Codes: M25.519 - Pain in unspecified shoulder Plan: Patient with recent right humeral fracture on 09/01/2017 secondary to fall Acetaminophen as needed for pain Patient currently denies pain, feel that narcotics or stronger pain relief may worsen confusion Assessment and Plan Patient examined. Assessment and plan formulated with Kailee Lobo PA-C. I agree with the above. Gayle Davis Sep 22, 2017 08:40 Abbe Murphy DO Sep 23, 2017 14:16
[2017-09-22] MEDS: DILTIAZEM-CD 180 MG CAP ER PO SCH (09:00)
[2017-09-22] MEDS: METOPROLOL TARTRATE 25 MG TAB PO SCH ×2 (09:39→20:26)
[2017-09-22] MEDS: DONEPEZIL HCL 5 MG TAB PO SCH ×2 (09:39→20:26)
[2017-09-22] MEDS ORDERED: ASPIRIN 81 MG CHEW TAB CHEW SCH (10:15)
[2017-09-22] MEDS: ACETAMINOPHEN 325 MG TAB PO PRN (10:22)
[2017-09-22 12:27] LABS: INTERNATIONAL NORMALIZED RATIO 2.5 RATIO; PROTHROMBIN TIME - PATIENT 24.8 SEC (9.8-11.6)
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
[2017-09-22 18:10] VITALS: BP 115/56; PULSE 80; RESP 16; TEMP 97.1; O2SAT 97
[2017-09-22] MEDS: ATORVASTATIN 20 MG TAB PO SCH (20:26)
[2017-09-23 05:32] VITALS: BP 112/52; PULSE 71; RESP 16; TEMP 97.7; O2SAT 96
[2017-09-23 08:40] LABS: CHOLESTEROL 124 MG/DL (120-200); CHOLESTEROL/ HDL RATIO 2.65 RATIO; HDL CHOLESTEROL 46.7 MG/DL (40.0-60.0); LDL CHOLESTEROL 57 MG/DL (0-99); TRIGLYCERIDES 104 MG/DL (42-150)
[2017-09-23] MEDS: ESCITALOPRAM OXALATE 10 MG TAB PO SCH (09:49)
[2017-09-23] MEDS: DONEPEZIL HCL 5 MG TAB PO SCH ×2 (09:49→20:22)
[2017-09-23] MEDS: METOPROLOL TARTRATE 25 MG TAB PO SCH ×2 (09:49→20:22)
[2017-09-23] MEDS: DILTIAZEM-CD 180 MG CAP ER PO SCH (09:49)
[2017-09-23] MEDS ORDERED: PNEUMOCOCCAL POLYVALENT INJ 25 MCG/0.5 ML SYR IM ONE (10:00)
--- NOTE | 2017-09-23 13:46 | EKG ---
Date Performed: 09/23/2017 Time Performed: 11:45:56 PTAGE: 77 years EKG: Sinus rhythm WITH OCCASIONAL VENTRICULAR PREMATURE COMPLEXES POSSIBLE LEFT ATRIAL ENLARGEMENT BORDERLINE ECG Comp ared to prior electrocardiogram, Premature ventricular contractions are now present PREVIOUS TRACING : 11/20/2008 09.35 DOCTOR: Ronnie Pham Interpretating Date/Time 09/23/2017 13:45:16
--- NOTE | 2017-09-23 16:12 | HHI.PYPN ---
Subjective Chief Complaint: patient demented depressed with suicide attempt Remarks Patient seen in her room with nurse Matilda, chart reviewed, patient compliant medication. Patient willing quite still in bed. Continues markedly depressed with decreased range intensity of her affect. Attempted to discuss her depression she became somewhat tearful today. She is vague about suicidality today. I feel that is just a facade at this time Review of Systems Except as stated in HPI: all other systems reviewed are Neg Mental Status Examination Appearance: Appropriate Consciousness: Alert Orientation: Person, Place (hospitaldoesnotknowseverestate) Motor Activity: Other (patient sitting in wheelchair) Speech: Unremarkable Language: Adequate Fund of Knowledge: Adequate Attention and Concentration: Other (fair) Memory: Impaired Mood: Sad, Irritable (mildly) Affect: Other (decreased range and intensity) Thought Process & Associations: Disorganized Thought Content: Appropriate Hallucination Type: None Delusion Type: None Suicidal Ideation: Yes (patient will take suicide pill if offered) Suicidal Plan: Yes (would take suicide pill if offered) Suicidal Intention: Yes (would take suicide pill if offered) Homicidal Ideation: No Homicidal Plan: No Homicidal Intention: No Insight: Poor Judgment: Poor Results Labs Test 09/23/17 06:40 Triglycerides Level 104 MG/DL Cholesterol Level 124 MG/DL LDL Cholesterol 57 MG/DL HDL Cholesterol 46.7 MG/DL Cholesterol/HDL Ratio 2.65 RATIO Vitals/IOs Vital Signs Date Time Temp Pulse Resp B/P (MAP) Pulse Ox O2 Delivery O2 Flow Rate FiO2 09/23/17 05:32 97.7 71 16 112/52 (72) 96 09/22/17 07:00 Room Air Intake and Output 09/23/17 09/23/17 09/24/17 08:00 16:00 00:00 Intake Total 120 ml 340 ml Balance 120 ml 340 ml Assessment & Plan Problem List: (1) 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 For now continue treatment Justification for Cont. Inpt. At this time patient will decompensate and placed in the lower level of care Discharge Planning Hopefully to return home Request HC Surrog/Guard Advoc?: Yes Rob Elkins MD Sep 23, 2017 16:12
[2017-09-23 16:41] LABS: HEMOGLOBIN A1C 5.6 % (4.3-6.0)
[2017-09-23 18:33] VITALS: BP 126/58; PULSE 65; RESP 16; TEMP 98.6; O2SAT 96
[2017-09-23] MEDS: ATORVASTATIN 20 MG TAB PO SCH (20:22)
[2017-09-24 06:01] VITALS: BP 140/64; PULSE 70; RESP 18; TEMP 98; O2SAT 99
[2017-09-24] MEDS: DILTIAZEM-CD 180 MG CAP ER PO SCH (08:32)
[2017-09-24] MEDS: DONEPEZIL HCL 5 MG TAB PO SCH ×2 (08:32→20:53)
[2017-09-24] MEDS: METOPROLOL TARTRATE 25 MG TAB PO SCH ×2 (08:32→20:52)
[2017-09-24] MEDS: ESCITALOPRAM OXALATE 10 MG TAB PO SCH (08:32)
--- NOTE | 2017-09-24 11:00 | PD.TTN ---
Patient Problems 1. Discharge planning 2. Medication compliance 3. Knowledge deficit 4. Lack of coping skills Progress Toward Goals Provider Present: Dr. Ranjan Elkins Provider Input: 09/24/17 just started on medications, is very depressed, Psychiatric Counselors Present: Jenny Silverio LCSW Psych Therapist Input: 09/24/17 patient is very depressed and sad and still stating she does not want to live any more , she has been in bed this first day on unit and came out for lunch but only took one bite Group Spec/RT/OT/MCDONNELL Present: Ester Li, NIECY Group Spec/RT/OT/MCDONNELL Input: 09/24/17 new and thus far no participation in group yet Jenny Silverio LCSW Sep 24, 2017 11:00
--- NOTE | 2017-09-24 12:46 | HHI.PYPN ---
Subjective Chief Complaint: patient demented depressed with suicide attempt Remarks Patient seen in her room with nurse Marylou, chart reviewed, patient compliant medication. Patient remains depressed, suicidal, will hopelessness and helplessness. There is minimal socialization with her. Appreciated rather be in her bed with the covers to her chin. Patient only had a few dose of Lexapro need to continue monitoring medication at this time Review of Systems Except as stated in HPI: all other systems reviewed are Neg Mental Status Examination Appearance: Appropriate Consciousness: Alert Orientation: Person, Place (hospitaldoesnotknowseverestate) Motor Activity: Other (patient sitting in wheelchair) Speech: Unremarkable Language: Adequate Fund of Knowledge: Adequate Attention and Concentration: Other (fair) Memory: Impaired Mood: Sad, Irritable (mildly) Affect: Other (decreased range and intensity) Thought Process & Associations: Disorganized Thought Content: Appropriate Hallucination Type: None Delusion Type: None Suicidal Ideation: Yes (patient will take suicide pill if offered) Suicidal Plan: Yes (would take suicide pill if offered) Suicidal Intention: Yes (would take suicide pill if offered) Homicidal Ideation: No Homicidal Plan: No Homicidal Intention: No Insight: Poor Judgment: Poor Results Labs Test 09/24/17 08:10 Stool C. difficile Toxin (PCR) NEGATIVE Stl C. difficile Toxin Epiderm 027 PRESUMPTIVE NEGATIVE Vitals/IOs Vital Signs Date Time Temp Pulse Resp B/P (MAP) Pulse Ox O2 Delivery O2 Flow Rate FiO2 09/24/17 06:01 98.0 70 18 140/64 (89) 99 09/22/17 07:00 Room Air Intake and Output 09/24/17 09/24/17 09/25/17 08:00 16:00 00:00 Intake Total 0 ml 360 ml Balance 0 ml 360 ml Assessment & Plan Problem List: (1) Dementia in other diseases classified elsewhere with behavioral disturbance ICD Codes: F02.81 - Dementia in other diseases classified elsewhere with behavioral disturbance (2) ALZHEIMER'S DISEASE WITH LATE ONSET ICD Codes: G30.1 - ALZHEIMER'S DISEASE WITH LATE ONSET Assessment & Plan Estimated LOS: days patient continues depressed suicidal hopeless, compliant medications. For now continue treatment Justification for Cont. Inpt. At this time patient decompensate if placed in a lower level of care Discharge Planning Hopeful return to home Request HC Surrog/Guard Advoc?: Yes Rob Elkins MD Sep 24, 2017 12:46
[2017-09-24] MEDS: ACETAMINOPHEN 325 MG TAB PO PRN ×2 (13:04→20:52)
[2017-09-24 18:00] VITALS: BP 160/72; PULSE 67; RESP 18; TEMP 98; O2SAT 96
[2017-09-24] MEDS: ATORVASTATIN 20 MG TAB PO SCH (20:52)
[2017-09-25] MEDS ORDERED: WARFARIN SOD 4 MG TAB PO SCH (06:00)
[2017-09-25 06:30] VITALS: BP 128/62; PULSE 69; RESP 16; TEMP 97.7; O2SAT 97
[2017-09-25] MEDS: DILTIAZEM-CD 180 MG CAP ER PO SCH (08:42)
[2017-09-25] MEDS: METOPROLOL TARTRATE 25 MG TAB PO SCH ×2 (08:42→20:58)
[2017-09-25] MEDS: ESCITALOPRAM OXALATE 10 MG TAB PO SCH (08:42)
[2017-09-25] MEDS: DONEPEZIL HCL 5 MG TAB PO SCH ×2 (08:42→20:58)
[2017-09-25 17:00] VITALS: BP 129/56; PULSE 72; RESP 16; TEMP 97.8; O2SAT 97
--- NOTE | 2017-09-25 18:16 | HHI.PYPN ---
Subjective Chief Complaint: patient demented depressed with suicide attempt Remarks Patient was seen and case discussed with nursing. Patient is alert and oriented 2. She remains depressed and says she does not care if she lives or dies. His passive suicidal ideation saying she has nothing to live for. She denies any intent or plan. She is a shower today and is brighter per nursing. Compliant with medications Mental Status Examination Appearance: Appropriate Consciousness: Alert Orientation: Person, Place (hospitaldoesnotknowseverestate) Motor Activity: Other (patient sitting in wheelchair) Speech: Unremarkable Language: Adequate Fund of Knowledge: Adequate Attention and Concentration: Other (fair) Memory: Impaired Mood: Sad, Irritable (mildly) Affect: Other (decreased range and intensity) Thought Process & Associations: Disorganized Thought Content: Appropriate Hallucination Type: None Delusion Type: None Suicidal Ideation: Yes (patient will take suicide pill if offered) Suicidal Plan: No Suicidal Intention: No Homicidal Ideation: No Homicidal Plan: No Homicidal Intention: No Insight: Poor Judgment: Poor Results Vitals/IOs Vital Signs Date Time Temp Pulse Resp B/P (MAP) Pulse Ox O2 Delivery O2 Flow Rate FiO2 09/25/17 17:00 97.8 72 16 129/56 (80) 97 09/22/17 07:00 Room Air Intake and Output 09/25/17 09/25/17 09/26/17 08:00 16:00 00:00 Intake Total 120 ml 120 ml 240 ml Balance 120 ml 120 ml 240 ml Assessment & Plan Problem List: (1) Dementia in other diseases classified elsewhere with behavioral disturbance ICD Codes: F02.81 - Dementia in other diseases classified elsewhere with behavioral disturbance (2) ALZHEIMER'S DISEASE WITH LATE ONSET ICD Codes: G30.1 - ALZHEIMER'S DISEASE WITH LATE ONSET Assessment & Plan Continue current treatment plan Justification for Cont. Inpt. Patient would decompensate in a less restrictive setting Request HC Surrog/Guard Advoc?: Yes Brett Chong DO Sep 25, 2017 18:16
[2017-09-25] MEDS: ATORVASTATIN 20 MG TAB PO SCH (20:58)
[2017-09-26 06:00] VITALS: BP 139/62; PULSE 71; RESP 16; TEMP 98.5; O2SAT 96
[2017-09-26] MEDS: METOPROLOL TARTRATE 25 MG TAB PO SCH ×2 (09:00→21:46)
[2017-09-26] MEDS: ESCITALOPRAM OXALATE 10 MG TAB PO SCH (09:00)
[2017-09-26] MEDS: DONEPEZIL HCL 5 MG TAB PO SCH ×2 (09:00→21:00)
[2017-09-26] MEDS: DILTIAZEM-CD 180 MG CAP ER PO SCH (09:00)
--- NOTE | 2017-09-26 16:14 | HHI.PYPN ---
Subjective Chief Complaint: patient demented depressed with suicide attempt Remarks Patient was seen and case discussed with nursing. appears more confused today giving occasional contradicting answers. She has poor memory claiming she hasn't had a bowel movement in 2 weeks while nursing says she had diarrhea couple days ago. Continues to say that she hasn't eaten when she did. Mood is depressed but she denies suicidal ideation today. Compliant with medications. Largely seclusive to bed Mental Status Examination Appearance: Appropriate Consciousness: Alert Orientation: Person, Place (hospitaldoesnotknowseverestate) Motor Activity: Other (patient sitting in wheelchair) Speech: Unremarkable Language: Adequate Fund of Knowledge: Adequate Attention and Concentration: Other (fair) Memory: Impaired Mood: Sad, Irritable (mildly) Affect: Other (decreased range and intensity) Thought Process & Associations: Disorganized Thought Content: Appropriate Hallucination Type: None Delusion Type: None Suicidal Ideation: Yes (patient will take suicide pill if offered) Suicidal Plan: No Suicidal Intention: No Homicidal Ideation: No Homicidal Plan: No Homicidal Intention: No Insight: Poor Judgment: Poor Results Vitals/IOs Vital Signs Date Time Temp Pulse Resp B/P (MAP) Pulse Ox O2 Delivery O2 Flow Rate FiO2 09/26/17 06:00 98.5 71 16 139/62 (87) 96 09/22/17 07:00 Room Air Assessment & Plan Problem List: (1) Dementia in other diseases classified elsewhere with behavioral disturbance ICD Codes: F02.81 - Dementia in other diseases classified elsewhere with behavioral disturbance (2) ALZHEIMER'S DISEASE WITH LATE ONSET ICD Codes: G30.1 - ALZHEIMER'S DISEASE WITH LATE ONSET Assessment & Plan Continue current treatment plan Justification for Cont. Inpt. Patient will decompensate in a less restrictive setting Request HC Surrog/Guard Advoc?: Yes Brett Chong DO Sep 26, 2017 16:14
[2017-09-26 18:28] VITALS: BP 140/96; PULSE 70; RESP 16; TEMP 98; O2SAT 97
[2017-09-26] MEDS: ATORVASTATIN 20 MG TAB PO SCH (21:46)
[2017-09-27 06:19] VITALS: BP 155/70; PULSE 66; RESP 16; TEMP 97.7; O2SAT 96
[2017-09-27] MEDS: ESCITALOPRAM OXALATE 10 MG TAB PO SCH (08:42)
[2017-09-27] MEDS: DILTIAZEM-CD 180 MG CAP ER PO SCH (08:42)
[2017-09-27] MEDS: METOPROLOL TARTRATE 25 MG TAB PO SCH ×2 (08:43→21:37)
[2017-09-27] MEDS: DONEPEZIL HCL 5 MG TAB PO SCH ×2 (08:45→21:00)
--- NOTE | 2017-09-27 10:40 | PD.TTN ---
Patient Problems 1. Discharge planning 2. Medication compliance 3. Knowledge deficit 4. Lack of coping skills Progress Toward Goals Provider Present: Dr. Ranjan Elkins Provider Input: 09/24/17 just started on medications, is very depressed, 09/27/17 continue to titrate anti depressant Psychiatric Counselors Present: Jenny Silverio LCSW Psych Therapist Input: 09/24/17 patient is very depressed and sad and still stating she does not want to live any more , she has been in bed this first day on unit and came out for lunch but only took one bite 09/27/17 patient remained in bed over weekend and did not want to participate in groups Group Spec/RT/OT/MCDONNELL Present: Ester Li, GPS Group Spec/RT/OT/MCDONNELL Input: 09/24/17 new and thus far no participation in group yet 09/27/17 isolates to her room Jenny Silverio LCSW Sep 27, 2017 10:40
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
[2017-09-27 18:10] VITALS: BP 134/64; PULSE 55; RESP 16; TEMP 98.2; O2SAT 95
[2017-09-27] MEDS: ATORVASTATIN 20 MG TAB PO SCH (21:37)
[2017-09-28 06:00] VITALS: BP 155/58; PULSE 65; RESP 16; TEMP 97.9; O2SAT 98
[2017-09-28] MEDS: METOPROLOL TARTRATE 25 MG TAB PO SCH ×2 (09:00→21:24)
[2017-09-28] MEDS: DONEPEZIL HCL 5 MG TAB PO SCH ×2 (09:00→21:00)
[2017-09-28] MEDS: DILTIAZEM-CD 180 MG CAP ER PO SCH (09:00)
[2017-09-28] MEDS: ESCITALOPRAM OXALATE 10 MG TAB PO SCH (09:32)
--- NOTE | 2017-09-28 16:24 | HHI.PYPN ---
Subjective Chief Complaint: patient demented depressed with suicide attempt Remarks Patient seen in her room. She continues to isolate with depressed mood, confused and disoriented. Though she denies suicidality I feel the ideation is present. Review of Systems Except as stated in HPI: all other systems reviewed are Neg Mental Status Examination Appearance: Appropriate Consciousness: Alert Orientation: Person, Place (hospitaldoesnotknowseverestate) Motor Activity: Other (patient sitting in wheelchair) Speech: Unremarkable Language: Adequate Fund of Knowledge: Adequate Attention and Concentration: Other (fair) Memory: Impaired Mood: Sad, Irritable (mildly) Affect: Other (decreased range and intensity) Thought Process & Associations: Disorganized Thought Content: Appropriate Hallucination Type: None Delusion Type: None Suicidal Ideation: Yes (patient will take suicide pill if offered) Suicidal Plan: No Suicidal Intention: No Homicidal Ideation: No Homicidal Plan: No Homicidal Intention: No Insight: Poor Judgment: Poor Results Vitals/IOs Vital Signs Date Time Temp Pulse Resp B/P (MAP) Pulse Ox O2 Delivery O2 Flow Rate FiO2 09/28/17 06:00 97.9 65 16 155/58 (90) 98 Intake and Output 09/28/17 09/28/17 09/29/17 08:00 16:00 00:00 Intake Total 120 ml Balance 120 ml Assessment & Plan Problem List: (1) Dementia in other diseases classified elsewhere with behavioral disturbance ICD Codes: F02.81 - Dementia in other diseases classified elsewhere with behavioral disturbance (2) ALZHEIMER'S DISEASE WITH LATE ONSET ICD Codes: G30.1 - ALZHEIMER'S DISEASE WITH LATE ONSET Assessment & Plan Estimated LOS: days patient remains confused disoriented and depressed isolating in her room Justification for Cont. Inpt. At this time patient decompensated placed a lower level of care Discharge Planning Placement is to be determined Request HC Surrog/Guard Advoc?: Yes Rob Elkins MD Sep 28, 2017 16:24
[2017-09-28 18:47] VITALS: BP 128/58; PULSE 80; RESP 16; TEMP 97.8; O2SAT 96
[2017-09-28] MEDS: ATORVASTATIN 20 MG TAB PO SCH (21:24)
[2017-09-29 06:19] VITALS: BP 157/70; PULSE 68; RESP 16; TEMP 97.9; O2SAT 97
[2017-09-29] MEDS: DONEPEZIL HCL 5 MG TAB PO SCH ×2 (09:00→20:21)
[2017-09-29] MEDS: METOPROLOL TARTRATE 25 MG TAB PO SCH ×2 (09:00→20:22)
[2017-09-29] MEDS: ESCITALOPRAM OXALATE 10 MG TAB PO SCH (09:00)
[2017-09-29] MEDS: DILTIAZEM-CD 180 MG CAP ER PO SCH (09:00)
--- NOTE | 2017-09-29 15:02 | HHI.PYPN ---
Subjective Chief Complaint: patient demented depressed with suicide attempt Remarks Patient seen in her room with nurse Barb nurse practitioner Maranda, chart review, patient compliant medications. While patient does come to the day room for meals she otherwise spends most of the day in bed. Patient seen in her room she is alert diffusely confused. Now she is denying suicidality denying voices saying she wants to go home. However when I asked her about her taking the suicide pill she quickly and firmly said that she would take it that she wanted to . When I asked her how strong her feelings of were face became quite sad though she showed no tears. At this time I feel patient does have suicidal ideation intent, and that she would take the suicide pill. We will increase patient's Lexapro to 20 mg daily we'll add Abilify 2 mg at at bedtime. Patient scheduled for [facility] tomorrow Review of Systems Except as stated in HPI: all other systems reviewed are Neg Mental Status Examination Appearance: Appropriate Consciousness: Alert Orientation: Person, Place (hospitaldoesnotknowseverestate) Motor Activity: Other (patient sitting in wheelchair) Speech: Unremarkable Language: Adequate Fund of Knowledge: Adequate Attention and Concentration: Other (fair) Memory: Impaired Mood: Sad, Irritable (mildly) Affect: Other (decreased range and intensity) Thought Process & Associations: Disorganized Thought Content: Appropriate Hallucination Type: None Delusion Type: None Suicidal Ideation: Yes (patient will take suicide pill if offered) Suicidal Plan: No Suicidal Intention: No Homicidal Ideation: No Homicidal Plan: No Homicidal Intention: No Insight: Poor Judgment: Poor Results Vitals/IOs Vital Signs Date Time Temp Pulse Resp B/P (MAP) Pulse Ox O2 Delivery O2 Flow Rate FiO2 09/29/17 06:19 97.9 68 16 157/70 (99) 97 Intake and Output 09/29/17 09/29/17 09/30/17 08:00 16:00 00:00 Intake Total 960 ml Balance 960 ml Assessment & Plan Problem List: (1) Dementia in other diseases classified elsewhere with behavioral disturbance ICD Codes: F02.81 - Dementia in other diseases classified elsewhere with behavioral disturbance (2) ALZHEIMER'S DISEASE WITH LATE ONSET ICD Codes: G30.1 - ALZHEIMER'S DISEASE WITH LATE ONSET Assessment & Plan Estimated LOS: days patient continues confused demented, but also quite depressed with high risk suicidality. She medication adjustments above. Patient scheduled for [facility] tomorrow Justification for Cont. Inpt. At this time patient will decompensate her placed in a lower level of care Discharge Planning Ideally patient will be returned to the home situation with her son and Request HC Surrog/Guard Advoc?: Yes Rob Elkins MD Sep 29, 2017 15:02
--- NOTE | 2017-09-29 16:10 | PD.TTN ---
Patient Problems 1. Discharge planning 2. Medication compliance 3. Knowledge deficit 4. Lack of coping skills Progress Toward Goals Provider Present: Dr. Ranjan Elkins Provider Input: 09/29/17 still titrating medications 09/24/17 just started on medications, is very depressed, 09/27/17 continue to titrate anti depressant Psychiatric Counselors Present: Jenny Silverio LCSW Psych Therapist Input: 09/29/17 remains very depressed but comes out for meals and appears to eat a little more, still shares she does not want to live 09/24/17 patient is very depressed and sad and still stating she does not want to live any more , she has been in bed this first day on unit and came out for lunch but only took one bite 09/27/17 patient remained in bed over weekend and did not want to participate in groups Group Spec/RT/OT/MCDONNELL Present: Ester Li, GPS Group Spec/RT/OT/MCDONNELL Input: 09/29/17 seclusive to room , enjoyed ice cream in bed 09/24/17 new and thus far no participation in group yet 09/27/17 isolates to her room Jenny Silverio LCSW Sep 29, 2017 16:10
[2017-09-29 17:15] VITALS: BP 144/63; PULSE 74; RESP 16; TEMP 98.2; O2SAT 98
[2017-09-29] MEDS: ATORVASTATIN 20 MG TAB PO SCH (20:22)
[2017-09-29] MEDS ORDERED: ARIPiprazole 2 MG TAB PO SCH (21:00)
[2017-09-30 05:46] VITALS: BP 168/70; PULSE 62; RESP 18; TEMP 97.6; O2SAT 96
[2017-09-30] MEDS: DILTIAZEM-CD 180 MG CAP ER PO SCH (09:00)
[2017-09-30] MEDS: METOPROLOL TARTRATE 25 MG TAB PO SCH (09:00)
[2017-09-30] MEDS ORDERED: ESCITALOPRAM OXALATE 20 MG TAB PO SCH (09:00)
[2017-09-30] MEDS: DONEPEZIL HCL 5 MG TAB PO SCH (09:00)
[2017-09-30] MEDS ORDERED: ARIP2 PO (12:43)
[2017-09-30] MEDS ORDERED: METO25TA3 PO (12:43)
[2017-09-30] MEDS ORDERED: DILT0.05 PO (12:43)
[2017-09-30] MEDS ORDERED: DONE5TAB7 PO (12:43)
[2017-09-30] MEDS ORDERED: LEXA20TA PO (12:43)
[2017-09-30] MEDS ORDERED: ALEN35TA24 PO (12:43)
[2017-09-30] MEDS ORDERED: ATOR20TA15 PO (12:43)
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
[2017-09-30 17:52] VITALS: BP 119/60; PULSE 59; RESP 18; TEMP 98.2; O2SAT 97
== END 2017-09-30 18:30 | disposition home or self-care (01) | DRG 57 ==
LOC: NEPD 18:38 → NEDA 09-22 05:52 → H250 09-22 08:05
PROVIDERS: ADMIT Psychiatry & Neurology Psychiatry; ATTEND Psychiatry & Neurology Psychiatry
DX: G30.1 Alzheimer's disease with late onset (principal); F02.81 Dementia in other diseases classified elsewhere, unspecified severity, with behavioral disturbance; R45.851 Suicidal ideations; I48.91 Unspecified atrial fibrillation; I10 Essential (primary) hypertension; F32.9 Major depressive disorder, single episode, unspecified; G25.81 Restless legs syndrome; F43.20 Adjustment disorder, unspecified; I73.9 Peripheral vascular disease, unspecified; S42.301D Unspecified fracture of shaft of humerus, right arm, subsequent encounter for fracture with routine healing; R29.6 Repeated falls; K21.9 Gastro-esophageal reflux disease without esophagitis; W19.XXXD Unspecified fall, subsequent encounter; Z72.0 Tobacco use; Z79.01 Long term (current) use of anticoagulants; Z86.718 Personal history of other venous thrombosis and embolism; Z86.73 Personal history of transient ischemic attack (TIA), and cerebral infarction without residual deficits; Z91.5 Personal history of self-harm
CPT/HCPCS: 70450; 71045; 80053; 80061; 80307; 81001; 83036; 84443; 85025; 85610; 85730; 87493; 93005; 99285